=== PATIENT | female | born 1955 ===

== ENCOUNTER 2017-10-31 16:47 | Emergency (ER) | payer OTHER ==
[2017-10-31 16:57] VITALS: TEMP 97.5
[2017-10-31] MEDS: Albuterol-Ipratrop 3 mg / 0.5 (3 ml) UD IH SCH ×2 (17:20→17:36)
[2017-10-31] MEDS ORDERED: Albuterol-Ipratrop 3 mg / 0.5 (3 ml) UD ONE (17:39)
--- NOTE | 2017-10-31 17:47 | C.PDOC ---
History Of Present Illness 62-year-old female, presents to the emergency department with complaints of cough and congestion. 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 Patient states she was seen by PMD who gave her Rx for antibiotics that seemed to have worked initially, but she returned to work over the past week and symptoms have worsened again. She denies fever, nausea/vomiting or any other associated symptoms. No other complaints at this time Time Seen by Provider: 10/31/17 17:00 Chief Complaint (Nursing): Cough, Cold, Congestion History Per: Patient History/Exam Limitations: no limitations Past Medical History Reviewed: Historical Data, Nursing Documentation, Vital Signs Vital Signs: Last Vital Signs Temp 97.5 F L 10/31/17 16:53 Pulse 115 H 10/31/17 18:08 Resp 20 10/31/17 18:08 BP 115/82 10/31/17 18:08 Pulse Ox 98 10/31/17 18:08 - Medical History PMH: Anemia, Hypercholesterolemia Family History: States: No Known Family Hx - Social History Hx Tobacco Use: No Hx Alcohol Use: No Hx Substance Use: No - Immunization History Hx Tetanus Toxoid Vaccination: No Hx Influenza Vaccination: No Review Of Systems Except As Marked, All Systems Reviewed And Found Negative. Constitutional: Positive for: Malaise. Negative for: Fever, Chills ENT: Positive for: Nose Congestion Respiratory: Positive for: Cough. Negative for: Sputum Gastrointestinal: Negative for: Nausea, Vomiting Musculoskeletal: Negative for: Back Pain Skin: Negative for: Rash Physical Exam - Physical Exam Appears: Non-toxic, No Acute Distress Skin: Normal Color, No Rash Eye(s): bilateral: PERRL Nose: Normal Oral Mucosa: Moist Lips: Normal Appearing Neck: Normal ROM Chest: Symmetrical Cardiovascular: Rhythm Regular, No Murmur Respiratory: No Accessory Muscle Use, Rhonchi (B/L bases) Extremity: Normal ROM, No Deformity, No Swelling Neurological/Psych: Oriented x3, Normal Speech ED Course And Treatment O2 Sat by Pulse Oximetry: 99 (RA) Pulse Ox Interpretation: Normal - Radiology CXR: Interpreted by Me CXR Interpretation: Yes: No Acute Disease Progress Note: Treated with duoneb x 2 and motrin. On re-evaluation lungs clear Reassessment Condition: Improved Disposition Counseled Patient/Family Regarding: Studies Performed, Diagnosis, Need For Followup, Rx Given - Disposition Disposition: HOME/ ROUTINE Disposition Time: 17:00 Condition: STABLE Additional Instructions: Follow up with your PMD for further evaluation Prescriptions: Benzonatate [Tessalon Perles] 100 mg PO Q8 PRN #15 sgl PRN Reason: Cough Instructions: Upper Respiratory Infection (ED) Forms: [employer] ([place]) - POA Present On Arrival: None - Clinical Impression Clinical Impression: Influenza-like illness - Scribe Statement The provider has reviewed the documentation as recorded by the Scribe (Grace Valverde) All medical record entries made by the Scribe were at my direction and personally dictated by me. I have reviewed the chart and agree that the record accurately reflects my personal performance of the history, physical exam, medical decision making, and the department course for this patient. I have also personally directed, reviewed, and agree with the discharge instructions and disposition.
[2017-10-31 18:09] VITALS: BP 115/82; PULSE 115; RESP 20
[2017-10-31 18:43] VITALS: O2SAT 99
== END 2017-10-31 18:09 | disposition home or self-care (01) ==
LOC: C.ER 16:47
DX: J11.1 Influenza due to unidentified influenza virus with other respiratory manifestations (principal)